=== PATIENT | female | born 1965 | race Caucasian/White ===

== ENCOUNTER 2016-12-26 05:31 | Day surgery (SDC) | payer OTHER ==
[2016-12-20 16:39] LABS: INTERNATIONAL NORMAL RATI 1.1 UNITS (-); PARTIAL THROMBO TIME 28.9 SEC (22.5-37.2); PROTIME (NOT ORD) 13.6 SEC (12.0-14.5)
[~2016-12-26 05:31] MED LIST: BIOIDENTICAL HORMONE SL; EPIPEN0.3 IM; FLEX PO; MELATONIN5 M1 PO; MULTIVITAMI1 PO; VICTOZA18 MG/3 ML SC
== END 2016-12-26 18:36 | disposition home or self-care (01) ==
LOC: SDC 05:31
PROVIDERS: Surgery Plastic and Reconstructive Surgery
PROC: 0J013ZZ Alteration of Face Subcutaneous Tissue and Fascia, Percutaneous Approach (ICD-10-PCS; 2016-12-26)
PROC: 0W020ZZ Alteration of Face, Open Approach (ICD-10-PCS; principal; 2016-12-26 06:45)
PROC: 0J013ZZ Alteration of Face Subcutaneous Tissue and Fascia, Percutaneous Approach (ICD-10-PCS; 2016-12-26 06:45)
DX: Z41.1 Encounter for cosmetic surgery (principal); H02.409 Unspecified ptosis of unspecified eyelid; L98.8 Other specified disorders of the skin and subcutaneous tissue; L98.7 Excessive and redundant skin and subcutaneous tissue; L90.8 Other atrophic disorders of skin; E78.5 Hyperlipidemia, unspecified; E11.9 Type 2 diabetes mellitus without complications; E78.00 Pure hypercholesterolemia, unspecified; J45.909 Unspecified asthma, uncomplicated; G43.909 Migraine, unspecified, not intractable, without status migrainosus; M19.90 Unspecified osteoarthritis, unspecified site; F41.9 Anxiety disorder, unspecified; F32.9 Major depressive disorder, single episode, unspecified; Z90.49 Acquired absence of other specified parts of digestive tract; Z90.710 Acquired absence of both cervix and uterus; Z98.84 Bariatric surgery status; Z88.0 Allergy status to penicillin; Z88.6 Allergy status to analgesic agent; Z91.030 Bee allergy status; Z91.041 Radiographic dye allergy status; Z79.899 Other long term (current) drug therapy; Z87.828 Personal history of other (healed) physical injury and trauma; Z87.81 Personal history of (healed) traumatic fracture; Z98.890 Other specified postprocedural states
CPT/HCPCS: 80048; 82962; 85049; 85576; 85610; 85730; 93005; A9270-GY; C1713; J0690; J2250; J2270; J2405; J2550; J3010; P9045